=== PATIENT | female | born 1970 | race Caucasian/White ===

== ENCOUNTER → 2017-03-08 | Outpatient (CLI) | payer OTHER ==
--- NOTE | 2017-03-08 13:23 | REP ---
RENAL AND BLADDER ULTRASOUND: Real-time sonographic evaluation of the kidneys performed and demonstrates both kidneys to be normal in size and echotexture, right kidney measuring 10.5 x 4.8 x 5.6 cm and left kidney 10.4 x 5.6 x 4.8 cm. There is no hydronephrosis bilaterally. No renal mass is seen and I see no definite renal calculus. A right lobe liver cyst is incidentally noted measuring 2.3 x 2.5 x 2.2 cm. Urinary bladder measures 9.1 x 6.3 x 8.2 cm for a total volume of 307 mL. No mass or calculus is seen. IMPRESSION: Negative renal and bladder ultrasound. Liver cyst incidentally noted. Signed by Agustin Martin MD 03/08/2017 04:52 P
== END ==
LOC: M RAD 11:58
PROVIDERS: ATTEND Surgery
DX: S30.0XXD Contusion of lower back and pelvis, subsequent encounter (principal); X58.XXXD Exposure to other specified factors, subsequent encounter; Y92.89 Other specified places as the place of occurrence of the external cause; Y93.89 Activity, other specified; Y99.8 Other external cause status

== ENCOUNTER 2017-05-01 12:10 | Emergency (ER) | payer OTHER ==
[~2017-05-01] VITALS: Ht 152.4 cm; Wt 68.1 kg
[2017-05-01 12:10] VITALS: BP 123/77
[2017-05-01] MEDS ORDERED: EFFE150C PO (12:25)
[2017-05-01] MEDS ORDERED: CLON0.5T PO (12:25)
[2017-05-01] MEDS ORDERED: AUGM875T28 PO (12:43)
[2017-05-01] MEDS ORDERED: AUGMENTIN 875 MG TAB PO ONE (12:45)
== END 2017-05-01 12:55 | disposition home or self-care (01) ==
LOC: M ED 12:10
DX: S81.851A Open bite, right lower leg, initial encounter (principal); W54.0XXA Bitten by dog, initial encounter; Y92.9 Unspecified place or not applicable; Y93.9 Activity, unspecified; Y99.0 Civilian activity done for income or pay; F41.9 Anxiety disorder, unspecified; F32.9 Major depressive disorder, single episode, unspecified; Z79.899 Other long term (current) drug therapy

== ENCOUNTER → 2019-08-24 | Outpatient (CLI) | payer OTHER ==
[~2019-08-24] MED LIST: AUGM875T28 PO; CLON0.5T8 PO; EFFE150C2 PO
[2019-08-24 13:39] LABS: HEPATITIS B SURFACE ANTIBODY NEGATIVE (POSITIVE); HEPATITIS C VIRUS ABY INDEX 0.1 INDEX (<0.8); HIV 1&2 SCREEN CENTAUR NEGATIVE (NEGATIVE)
== END ==
LOC: M WUC 10:02
PROVIDERS: ATTEND Nurse Practitioner Women's Health
DX: Z11.3 Encounter for screening for infections with a predominantly sexual mode of transmission (principal)

== ENCOUNTER → 2022-10-24 | Outpatient (CLI) | payer OTHER ==
[~2022-10-24] MED LIST changes: +CLON0.5T2 PO; -CLON0.5T8 PO
== END ==
LOC: M WUC 10:24
PROVIDERS: ATTEND Physician Assistant
DX: M19.071 Primary osteoarthritis, right ankle and foot (principal); M20.11 Hallux valgus (acquired), right foot; Q66.221 Congenital metatarsus adductus, right foot; M77.31 Calcaneal spur, right foot; M79.671 Pain in right foot

== ENCOUNTER → 2025-07-29 | Outpatient (CLI) | payer OTHER ==
[~2025-07-29] MED LIST changes: -EFFE150C2 PO; +EFFE150C3 PO
== END ==
LOC: M WHC 08:35
PROVIDERS: ATTEND Physician Assistant
DX: Z12.31 Encounter for screening mammogram for malignant neoplasm of breast (principal); R92.333 Mammographic heterogeneous density, bilateral breasts